=== PATIENT | female | born 1980 | race Caucasian/White ===

== ENCOUNTER 2016-08-24 14:20 | Emergency (ER) | payer OTHER ==
[~2016-08-24] VITALS: Ht 160 cm; Wt 60.5 kg
[2016-08-24 14:21] VITALS: BP 134/54; TEMP 98.7
[2016-08-24 15:24] LABS: PH 6 (5-8); SQUAMOUS EPITHELIAL 0-2 /hpf; URINE APPEARANCE Clear; URINE BACTERIA None Seen /hpf; URINE BILIRUBIN Negative (NEGATIVE); URINE BLOOD Negative (NEGATIVE); URINE COLOR Yellow; URINE GLUCOSE Negative (NEGATIVE); URINE KETONE Negative (NEGATIVE); URINE RBC 0-2 /hpf; URINE UROBILINOGEN Negative (NEGATIVE); URINE WBC 0-2 /hpf
[2016-08-24] MEDS ORDERED: NORCO 325 MG-51 TAB PO (16:42)
[2016-08-24 17:15] VITALS: PULSE 79
== END 2016-08-24 17:16 | disposition home or self-care (01) ==
LOC: COL.ER 14:20
PROVIDERS: Nurse Practitioner
DX: S39.012A Strain of muscle, fascia and tendon of lower back, initial encounter (principal); S70.01XA Contusion of right hip, initial encounter; W10.9XXA Fall (on) (from) unspecified stairs and steps, initial encounter; R20.2 Paresthesia of skin
CPT/HCPCS: J1885; J3360

== ENCOUNTER 2020-12-23 11:22 | Inpatient (IN) | payer MEDICAID ==
[~2020-12-23] VITALS: Ht 160 cm; Wt 64.1 kg
[2020-12-23] VITALS (39 sets, daily range): BP systolic 97–145; BP diastolic 45–100; PULSE 70–127; TEMP 98.2–99.8
[~2020-12-23 11:22] MED LIST: NORCO 325 MG-51 TAB PO
--- NOTE | 2020-12-23 11:32 | NUR ---
Presents to labor and delivery with c/o contractions. Accompanied by her cousin, who translates for her.
[2020-12-23] MEDS ORDERED: PRENATAL TABLET PO (11:44)
[2020-12-23 12:19] LABS: BASO % 0.5 % (0.0-2.0); EOS % 0.1 % (0-4.0); GRAN # 5.5 (1.4-6.5); GRAN % 66.5 % (42.2-75.2); HEMATOCRIT 38.2 % (37.0-47.0); HEMOGLOBIN 12.5 g/dl (12.5-16.0); LYMPH # 2.1 (1.2-3.4); LYMPH % 24.7 % (20.0-51.0); MEAN CELL VOLUME 82 fl (80.0-100.0); MEAN CORPUSCULAR HEMOGLOBIN 27 pg (27.0-31.0); MEAN CORPUSCULAR HGB CONC 33 g/dl (33.0-37.0); MEAN PLATELET VOLUME 11.7 fl (7.4-10.4); MONO # 0.7 (0.1-0.6); PLATELET COUNT 207 K/mm3 (130-400); RED BLOOD COUNT 4.68 M/mm3 (4.10-5.30); REDCELL DISTRIBUTION WIDTH-CV 16.5 % (11.5-14.5)
--- NOTE | 2020-12-23 12:50 | NUR ---
1130 PATIENT HERE FOR COMPLAINTS OF CONTRACTIONS. PATIENT SPEAKS NO TAJIK BUT COUSIN AT BEDSIDE FOR INTERPRETOR. EFM ON FHT 150 BABY ACTIVE AND GOOD ACCLERATIONS NOTED. CONTRACTIONS EVERY 2 MIN. SVE BY Charlie CHAUHAN RN /-[address] HUTSON CALLED AND UPDATED AND ORDERS TO ADMIT FOR LABOR.
--- NOTE | 2020-12-23 13:42 | NUR ---
1225 PATIENT WANTS EPIDURAL. SITS UP ON EDGE OF BED FOR PLACEMENT. Windy FORTUNE CRNA AT BEDSIDE. PATIENT TOLERATES WELL
--- NOTE | 2020-12-23 20:21 | NUR ---
2020 DELIVERY VIABLE MALE OVER INTACT PERINEUM WITH 8/9/9 APGARS. IV'S CONT TO INFUSE. REMAINS IN LR3 FOR RECOVERY.
--- NOTE | 2020-12-23 21:25 | NUR ---
2124 FF 1/U. FUNDAS MASSAGED WITH LARGE RUBRA AND SM CLOTS PASSED. PADS CHANGED.
[2020-12-24 04:08] VITALS: BP 101/52; PULSE 69; TEMP 97.7
[2020-12-24 07:08] VITALS: BP 102/58; PULSE 76; TEMP 98.1
--- NOTE | 2020-12-24 10:32 | NUR ---
Initial visit; Patient thanked Tube Turner for offering congratulations for the of her son. Tube Turner thanked patient for choosing [facility].
[2020-12-24 15:29] VITALS: BP 98/56; PULSE 78; TEMP 98.4
[2020-12-24 20:26] VITALS: BP 113/53; PULSE 75; TEMP 98.5
[2020-12-25 06:59] VITALS: BP 123/65; PULSE 79; TEMP 97.9
--- NOTE | 2020-12-25 10:43 | NUR ---
DISCHARGE INSTRUCTIONS GONE OVER WITH PT. AND INTERPRETOR ON PHONE. QUESTIONS INVITED AND ANSWERED. PT. GIVEN FORMULA TO GIVE BABY UNTIL WASTE HANDLING TECHNICIAN APPOINTMENT THURS 12/27. PT. HAS NO OTHER QUESTIONS AT THIS TIME. PT AND INFANT IN STABLE CONDITION
--- NOTE | 2020-12-25 11:24 | NUR ---
1102: PT. SIGNED ALL DISCHARGE PAPERWORK AND HER COUSIN IS HERE TO GET HER. PT. IN STABLE CONDITION AND AMBULATORY TO ED ENTRANCE FOR DISHCARGE. NO QUESTIONS AT THIS TIME.
== END 2020-12-25 11:02 | disposition home or self-care (01) | DRG 807 ==
LOC: LDRO 11:22 → LDR 11:30 → OB 11:30
PROVIDERS: Obstetrics & Gynecology; ADMIT Obstetrics & Gynecology
PROC: 10E0XZZ Delivery of Products of Conception, External Approach (ICD-10-PCS; principal; 2020-12-23)
DX: O48.0 Post-term pregnancy (principal); Z37.0 Single live birth; O77.0 Labor and delivery complicated by meconium in amniotic fluid; O43.129 Velamentous insertion of umbilical cord, unspecified trimester; O99.02 Anemia complicating childbirth; D64.9 Anemia, unspecified; Z3A.40 40 weeks gestation of pregnancy
CPT/HCPCS: J2590; J2795; J7120